=== PATIENT | female | born 1955 | race Caucasian/White ===

== ENCOUNTER 2023-08-21 21:19 | Emergency (ER) | payer OTHER, MEDICARE ==
[2023-08-21] MEDS: Take Home: Acetaminophen/HYDROcodone 325-5 MG, 5 Tab Pack PO ONE (22:19)
== END 2023-08-21 22:20 | disposition home or self-care (01) ==
LOC: VM.ED 21:19
DX: S42.202A Unspecified fracture of upper end of left humerus, initial encounter for closed fracture (principal); Z91.018 Allergy to other foods; Z88.8 Allergy status to other drugs, medicaments and biological substances; Z79.899 Other long term (current) drug therapy; Z86.16 Personal history of COVID-19; W01.0XXA Fall on same level from slipping, tripping and stumbling without subsequent striking against object, initial encounter
CPT/HCPCS: 73030-LT; 73060-LT; 99283; A9270-GY